=== PATIENT | male | born 1950 | race Caucasian/White ===

== ENCOUNTER → 2016-09-16 | Outpatient (CLI) | payer MEDICARE | END | disposition home or self-care (01) | LOC: PCVCCLINIC 14:36 | PROVIDERS: ATTEND Internal Medicine Cardiovascular Disease | DX: E78.5 Hyperlipidemia, unspecified (principal); R93.1 Abnormal findings on diagnostic imaging of heart and coronary circulation; R53.83 Other fatigue; R06.02 Shortness of breath; R09.89 Other specified symptoms and signs involving the circulatory and respiratory systems | CPT/HCPCS: 80061; 93005; G0463 ==